=== PATIENT | female | born 1990 | race Caucasian/White ===

== ENCOUNTER 2016-12-11 23:34 | Emergency (ER) | payer OTHER ==
[2016-12-12] MEDS ORDERED: ACETAMINOPHEN 325 MG TAB As Ordered ONE (01:20)
[2016-12-12] MEDS ORDERED: NORCO 5/325MG TABLET (BULK) As Ordered ONE (02:26)
--- NOTE | 2016-12-12 02:26 | REP ---
Clinical: Trauma. Technique: AP, lateral, bilateral oblique views of the left ankle. Findings: There is an acute oblique fracture of the distal fibular metaphysis / lateral malleolus with overlying soft tissue swelling. Post surgical changes involving the hind foot noted. Ankle mortise appears relatively intact. Impression: Acute lateral malleolus fracture with overlying soft tissue swelling. Signed by Suraj Edwards MD 12/12/2016 02:17 A
--- NOTE | 2016-12-12 02:28 | REP ---
Clinical: Trauma. Deformity/swelling. Technique: AP, lateral, bilateral oblique and sunrise views left knee . Findings: The osseous structures and joint spaces are intact and normal. There is no evidence for acute fracture or dislocation. No joint effusion is appreciated. Surrounding soft tissues are unremarkable. No subcutaneous emphysema or radiodense foreign body. Impression: Normal examination. No acute fracture or dislocation. Signed by Suraj Edwards MD 12/12/2016 02:19 A
--- NOTE | 2016-12-12 02:30 | REP ---
Clinical: Deformity/swelling. Technique: AP, lateral, bilateral oblique views of the left foot. Findings: There is a fracture of the distal fibula with overlying soft tissue swelling. Postsurgical changes involving the hind foot and calcaneus noted. No further acute fracture / dislocation appreciated or suggested. No subcutaneous emphysema or radiodense foreign body. Impression: Distal fibular fracture. Postsurgical changes to the hind foot. Signed by Suraj Edwards MD 12/12/2016 02:21 A
--- NOTE | 2016-12-12 02:37 | EDDOCDS ---
Physician Documentation [facility] Name: Heena Veliz Age: 26 yrs Sex: Female : 1990 Arrival Date: 12/11/2016 Time: 23:34 Bed I4 / M4 Private MD: Dago Morales H. Disposition: 12/12/16 02:24 Discharged to Home/Self Care. Impression: Displaced fracture of lateral malleolus of left fibula, Sprain of unspecified site of left knee, Other sprain of left foot. - Condition is Stable. - Discharge Instructions: Ankle Sprain, Knee Pain, Fibular Fracture, Pediatric. - Prescriptions for Jackson 5- 325 mg Oral Tablet - take 1 tablet by ORAL route every 6 hours As needed MDD: 4 tabs; 20 tablet. - Medication Reconciliation, Local Pharmacy Hours form. - Follow up: [facility]; When: 2 - 3 days; Reason: Recheck today's complaints, Continuance of care. - Problem is new. - Symptoms have improved. - Notes: FOLLOW UP WITH YOUR ORTHOPEDIC DOCTOR TOMORROW, USE MEDICATION INSTRUCTED Historical: - Allergies: no known allergies; - Home Meds: 1. Lexapro 10 mg Oral tab 1 tab once daily (Last dose: 12/10/2016) 2. Zyrtec 10 mg Oral tab 1 tab once daily (Last dose: 12/10/2016) 3. control pill 1 tab daily (Last dose: 12/10/2016) 4. naproxen 250 mg Oral tab 1 tab as needed (Last dose: 12/11/2016 22:30) - PMHx: Anxiety; Seasonal Allergies; - PSHx: bilateral feet surgery; - Social history: Smoking status: Patient uses tobacco products, current some day smoker. No barriers to communication noted, The patient speaks fluent Djiboutian, Speaks appropriately for age. - Family history: Not pertinent. - : The pt / caregiver states he / she is not on anticoagulants. Home medication list is obtained from the patient. - Exposure Risk Screening:: None identified. 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 9 in. (175.26 cm) (R); Pain 03/13; 12/12 02:34 BP 122 / 83; Pulse 88; Resp 16; Temp 98.6; Pulse Ox 97% ; Pain 3/10; mlc 12/11 23:37 Body Mass Index 31.01 (95.25 kg, 175.26 cm) gr2 Procedures: 02:22 Fracture care/splinting: Splint applied to left leg using Orthoglass splint, applied by ck7 myself. Examined by me, post splint application: neurovascular intact, 2+ distal pulses palpable, brisk capillary refill noted, Patient tolerated well. MDM: 01:18 Acetaminophen Tablet 650 mg PO once ordered. ck7 01:19 Knee, Complete Ordered. EDMS 01:19 Ankle, Complete Ordered. EDMS 01:20 Foot, Complete Ordered. EDMS 01:30 Financial registration complete. hs2 02:23 Crutches ordered. ck7 02:25 HYDROcodone-acetaminophen 4 pack- 5 mg-325 mg 1 packets PO Per package directions; ck7 Dispense with patient. 1 po q4h prn for pain ordered. Administered Medications: 01:34 Drug: Acetaminophen 650 mg [acetaminophen 325 mg tablet (2 tabs)] Route: PO; mlc 02:28 Drug: HYDROcodone-acetaminophen 4 pack- 1 packets [hydrocodone 5 mg-acetaminophen 325 mlc mg tablet (1 tabs)] {Co-Signature: nn1 (Lex Castorena RN).} Route: PO; 02:36 Follow up: Response: Med's dispensed home mlc Signatures: Dispatcher [employer] EDTarah Pérez RN RN dsf Kwaczala, Christopher, RPA-C RPA-Cck7 Guillermina Fuentes RN RN mlc Stanton, Hillary, Reg Reg hs2 Lex Castorena RN nn1 MTDD
--- NOTE | 2016-12-12 02:38 | EDDOCDS ---
Nurse's Notes [facility] Name: Heena Veliz Age: 26 yrs Sex: Female : 1990 Arrival Date: 12/11/2016 Time: 23:34 Bed I4 / M4 Private MD: Dago Morales H. Diagnosis: Sprain of unspecified site of left knee;Other sprain of left foot;Displaced fracture of lateral malleolus of left fibula Presentation: 12/11 23:52 Presenting complaint: Patient states: slipped on stairs and injured left leg, left knee dsf and left ankle. Adult Sepsis Screening: The patient does not have new or worsening altered mentation. Patient's respiratory rate is less than 22. Systolic blood pressure is greater than 100. Patient has a qSOFA score of 0- Negative Sepsis Screen. Suicide/Homicide risk assessment- the patient denies having any suicidal and/or homicidal ideations and does not present with any other emotional, behavioral or mental health complaints. Status: Patient is not a rehabilitation services manager or dependent. Transition of care: patient was not received from another setting of care. 23:52 Acuity: FAY Level 4 dsf 23:52 Method Of Arrival: Walkin/Carried/Asstd dsf 23:54 The patients lower extremity has obvious swelling present on examination. dsf Triage Assessment: 23:54 General: Appears in no apparent distress, Behavior is appropriate for age, cooperative. dsf Pain: Denies pain. Pt Declines HIV testing. Musculoskeletal: No deformity noted Swelling present in left ankle Reports pain in left ankle left lower leg and left knee. 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 Lexapro 10 mg Oral tab 1 tab once daily (Last dose: 12/10/2016) 2. Zyrtec 10 mg Oral tab 1 tab once daily (Last dose: 12/10/2016) 3. control pill 1 tab daily (Last dose: 12/10/2016) 4. naproxen 250 mg Oral tab 1 tab as needed (Last dose: 12/11/2016 22:30) - PMHx: Anxiety; Seasonal Allergies; - PSHx: bilateral feet surgery; - Social history: Smoking status: Patient uses tobacco products, current some day smoker. No barriers to communication noted, The patient speaks fluent Sierra Leonean, Speaks appropriately for age. - Family history: Not pertinent. - : The pt / caregiver states he / she is not on anticoagulants. Home medication list is obtained from the patient. - Exposure Risk Screening:: None identified. Screenin/08 01:34 Screening information is obtained from the patient. Fall risk: At risk due to injury. mlc Assistance ADL's: requires no assistance with activities of daily living. Abuse/DV Screen: The patient / caregiver reports he/she is: not in a situation that causes fear, pain or injury. Nutritional screening: No deficits noted. Advance Directives: Currently, there is no health care proxy. home support is adequate. Assessment: 01:34 General: Appears in no apparent distress, comfortable, Behavior is cooperative. Pain: mlc Location: left knee and anterior aspect of left ankle. Neurological: Level of Consciousness is awake, alert, Oriented to person, place, time. Cardiovascular: Pulses are all present. Respiratory: Airway is patent Respiratory effort is even, unlabored, Respiratory pattern is regular, symmetrical. : Derm: Skin is normal, Swollen area noted on left Achilles, left lateral malleolus, left medial malleolus and dorsum of left foot. Musculoskeletal: Capillary refill < 3 seconds in left toes Signs and Symptoms of Compartment Syndrome: no signs of compartment syndrome. 02:34 General: Appears in no apparent distress, comfortable, Behavior is cooperative, splint mlc on left lower leg. pt given crutches. . Pain: Pain currently is 3 out of 10 on a pain scale. Neurological: Level of Consciousness is awake, alert, obeys commands, Oriented to person, place, time. Respiratory: Airway is patent Respiratory effort is even, unlabored, Respiratory pattern is regular. Derm: Skin is normal. Derm:. Musculoskeletal: Circulation, motion, and sensation intact. Vital Signs: 12/11 23:37 BP 127 / 72; Pulse 82; Resp 18; Temp 98.9(O); Pulse Ox 100% on R/A; Weight 95.25 kg gr2 (R); Height 5 ft. 9 in. (175.26 cm) (R); Pain 5/10; 12/12 02:34 BP 122 / 83; Pulse 88; Resp 16; Temp 98.6; Pulse Ox 97% ; Pain 3/10; mlc 12/11 23:37 Body Mass Index 31.01 (95.25 kg, 175.26 cm) gr2 Vitals: 12/11 23:37 Log In Time: December 11, 2016 at 23:37. gr2 ED Course: 23:35 Patient visited by Linda Matson. gr2 23:35 Patient moved to Waiting gr2 23:37 Dago Morales is Private Physician. gr2 23:39 Patient visited by Linda Matson. gr2 23:39 Patient moved to Pre RCE gr2 23:52 Triage Initiated dsf 02/08 00:17 Patient moved to MTA Wait dsf 00:48 Patient moved to I4 / M4 ajs 00:50 Guillermo Cano RPA-C is PHCP. ck7 00:50 Maximus Preciado MD is Attending Physician. ck7 00:50 Patient visited by Guillermo Cano RPA-C. ck7 01:06 Patient visited by Guillermo Cano RPA-C. ck7 01:36 Patient visited by Guillermina Fuentes RN. mlc 02:10 Patient visited by Guillermo Cano RPA-C. ck7 02:23 [facility] is Referral Physician. ck7 02:34 The patient / caregiver is instructed regarding the plan of care and ED course. mlc 02:34 No IV's were initiated during this patient's visit. No procedures done that require mlc assistance. Administered Medications: 01:34 Drug: Acetaminophen 650 mg [acetaminophen 325 mg tablet (2 tabs)] Route: PO; mlc 02:28 Drug: HYDROcodone-acetaminophen 4 pack- 1 packets [hydrocodone 5 mg-acetaminophen 325 mlc mg tablet (1 tabs)] {Co-Signature: nn1 (Lex Castorena RN).} Route: PO; 02:36 Follow up: Response: Med's dispensed home mlc Order Results: There are currently no results for this order. Outcome: 02:24 Discharge ordered by Provider. ck7 02:34 Discharge Assessment: Patient awake, alert and oriented x 3. No cognitive and/or mlc functional deficits noted. Patient verbalized understanding of disposition instructions. patient administered narcotics - no. The following High Risk Discharge criteria are identified: None. Discharged to home with crutches, with significant other. Condition: good Condition: stable. Discharge instructions given to patient, Instructed on discharge instructions, follow up and referral plans. medication usage, no driving heavy equipment, Demonstrated understanding of instructions, medications, Pt was receptive of discharge instructions/ teaching. Prescriptions given X 1. No special radiology studies were completed. Property sent home with patient. 02:36 Patient left the ED. [facility] Signatures: Tarah Burnett,RN RN Alma Shah Christopher, RPA-C RPA-Cck7 Linda Matson gr2 Guillermina Fuentes RN RN [facility] Lex Castorena RN nn1 MTDD
[2016-12-12] MEDS ORDERED: METAL LOCK LOOP XX ONE (03:37)
--- NOTE | 2016-12-14 03:38 | EDDOCDS ---
Physician Documentation [facility] Name: Heena Veliz Age: 26 yrs Sex: Female : 1990 Arrival Date: 12/11/2016 Time: 23:34 Bed I4 / M4 Private MD: Dago Morales H. Disposition: 12/12/16 02:24 Discharged to Home/Self Care. Impression: Displaced fracture of lateral malleolus of left fibula, Sprain of unspecified site of left knee, Other sprain of left foot. - Condition is Stable. - Discharge Instructions: Ankle Sprain, Knee Pain, Fibular Fracture, Pediatric. - Prescriptions for Wales 5- 325 mg Oral Tablet - take 1 tablet by ORAL route every 6 hours As needed MDD: 4 tabs; 20 tablet. - Medication Reconciliation, Local Pharmacy Hours form. - Follow up: [facility]; When: 2 - 3 days; Reason: Recheck today's complaints, Continuance of care. - Problem is new. - Symptoms have improved. - Notes: FOLLOW UP WITH YOUR ORTHOPEDIC DOCTOR TOMORROW, USE MEDICATION INSTRUCTED Historical: - Allergies: no known allergies; - Home Meds: 1. Lexapro 10 mg Oral tab 1 tab once daily (Last dose: 12/10/2016) 2. Zyrtec 10 mg Oral tab 1 tab once daily (Last dose: 12/10/2016) 3. control pill 1 tab daily (Last dose: 12/10/2016) 4. naproxen 250 mg Oral tab 1 tab as needed (Last dose: 12/11/2016 22:30) - PMHx: Anxiety; Seasonal Allergies; - PSHx: bilateral feet surgery; - Social history: Smoking status: Patient uses tobacco products, current some day smoker. No barriers to communication noted, The patient speaks fluent Ukrainian, Speaks appropriately for age. - Family history: Not pertinent. - : The pt / caregiver states he / she is not on anticoagulants. Home medication list is obtained from the patient. - Exposure Risk Screening:: None identified. 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 9 in. (175.26 cm) (R); Pain 5/10; 12/12 02:34 BP 122 / 83; Pulse 88; Resp 16; Temp 98.6; Pulse Ox 97% ; Pain 3/10; mlc 12/11 23:37 Body Mass Index 31.01 (95.25 kg, 175.26 cm) gr2 Procedures: 02:22 Fracture care/splinting: Splint applied to left leg using Orthoglass splint, applied by ck7 myself. Examined by me, post splint application: neurovascular intact, 2+ distal pulses palpable, brisk capillary refill noted, Patient tolerated well. MDM: 01:18 Acetaminophen Tablet 650 mg PO once ordered. ck7 01:19 Knee, Complete Ordered. EDMS 01:19 Ankle, Complete Ordered. EDMS 01:20 Foot, Complete Ordered. EDMS 01:30 Financial registration complete. hs2 02:23 Crutches ordered. ck7 02:25 HYDROcodone-acetaminophen 4 pack- 5 mg-325 mg 1 packets PO Per package directions; ck7 Dispense with patient. 1 po q4h prn for pain ordered. 03:30 [facility] [place] Agreement was scanned into [employer] and attached to record. hs2 09:21 T-Sheet-- Draft Copy was scanned into [employer] and attached to record. gb Administered Medications: 01:34 Drug: Acetaminophen 650 mg [acetaminophen 325 mg tablet (2 tabs)] Route: PO; mlc 02:28 Drug: HYDROcodone-acetaminophen 4 pack- 1 packets [hydrocodone 5 mg-acetaminophen 325 mlc mg tablet (1 tabs)] {Co-Signature: nn1 (Lex Castorena RN).} Route: PO; 02:36 Follow up: Response: Med's dispensed home mlc Signatures: Dispatcher [employer] EDMS Ana Reno, Reg Reg gb Tarah Burnett RN RN dsf Kwaczala, Christopher, RPA-C RPA-Cck7 Guillermina Fuentes RN RN [facility] Meggan Pierre, Reg Reg hs2 Lex Castorena RN nn1 The chart was reviewed and I authenticate all verbal orders and agree with the evaluation and treatment provided.Attachments: 03:30 [facility] Payment Agreement hs2 09:21 T-Sheet-- Draft Copy gb Chart Complete MTDD
--- NOTE | 2016-12-14 03:38 | EDDOCDS ---
Nurse's Notes [facility] Name: Heena Veliz Age: 26 yrs Sex: Female : 1990 Arrival Date: 12/11/2016 Time: 23:34 Bed I4 / M4 Private MD: Dago Morales H. Diagnosis: Sprain of unspecified site of left knee;Other sprain of left foot;Displaced fracture of lateral malleolus of left fibula Presentation: 12/11 23:52 Presenting complaint: Patient states: slipped on stairs and injured left leg, left knee dsf and left ankle. Adult Sepsis Screening: The patient does not have new or worsening altered mentation. Patient's respiratory rate is less than 22. Systolic blood pressure is greater than 100. Patient has a qSOFA score of 0- Negative Sepsis Screen. Suicide/Homicide risk assessment- the patient denies having any suicidal and/or homicidal ideations and does not present with any other emotional, behavioral or mental health complaints. Status: Patient is not a in service education teacher or dependent. Transition of care: patient was not received from another setting of care. 23:52 Acuity: FAY Level 4 dsf 23:52 Method Of Arrival: Walkin/Carried/Asstd dsf 23:54 The patients lower extremity has obvious swelling present on examination. dsf Triage Assessment: 23:54 General: Appears in no apparent distress, Behavior is appropriate for age, cooperative. dsf Pain: Denies pain. Pt Declines HIV testing. Musculoskeletal: No deformity noted Swelling present in left ankle Reports pain in left ankle left lower leg and left knee. 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 Lexapro 10 mg Oral tab 1 tab once daily (Last dose: 12/10/2016) 2. Zyrtec 10 mg Oral tab 1 tab once daily (Last dose: 12/10/2016) 3. control pill 1 tab daily (Last dose: 12/10/2016) 4. naproxen 250 mg Oral tab 1 tab as needed (Last dose: 12/11/2016 22:30) - PMHx: Anxiety; Seasonal Allergies; - PSHx: bilateral feet surgery; - Social history: Smoking status: Patient uses tobacco products, current some day smoker. No barriers to communication noted, The patient speaks fluent Andorran, Speaks appropriately for age. - Family history: Not pertinent. - : The pt / caregiver states he / she is not on anticoagulants. Home medication list is obtained from the patient. - Exposure Risk Screening:: None identified. Screenin/08 01:34 Screening information is obtained from the patient. Fall risk: At risk due to injury. mlc Assistance ADL's: requires no assistance with activities of daily living. Abuse/DV Screen: The patient / caregiver reports he/she is: not in a situation that causes fear, pain or injury. Nutritional screening: No deficits noted. Advance Directives: Currently, there is no health care proxy. home support is adequate. Assessment: 01:34 General: Appears in no apparent distress, comfortable, Behavior is cooperative. Pain: mlc Location: left knee and anterior aspect of left ankle. Neurological: Level of Consciousness is awake, alert, Oriented to person, place, time. Cardiovascular: Pulses are all present. Respiratory: Airway is patent Respiratory effort is even, unlabored, Respiratory pattern is regular, symmetrical. : Derm: Skin is normal, Swollen area noted on left Achilles, left lateral malleolus, left medial malleolus and dorsum of left foot. Musculoskeletal: Capillary refill < 3 seconds in left toes Signs and Symptoms of Compartment Syndrome: no signs of compartment syndrome. 02:34 General: Appears in no apparent distress, comfortable, Behavior is cooperative, splint mlc on left lower leg. pt given crutches. . Pain: Pain currently is 3 out of 10 on a pain scale. Neurological: Level of Consciousness is awake, alert, obeys commands, Oriented to person, place, time. Respiratory: Airway is patent Respiratory effort is even, unlabored, Respiratory pattern is regular. Derm: Skin is normal. Derm:. Musculoskeletal: Circulation, motion, and sensation intact. Vital Signs: 12/11 23:37 BP 127 / 72; Pulse 82; Resp 18; Temp 98.9(O); Pulse Ox 100% on R/A; Weight 95.25 kg gr2 (R); Height 5 ft. 9 in. (175.26 cm) (R); Pain 5/10; 12/12 02:34 BP 122 / 83; Pulse 88; Resp 16; Temp 98.6; Pulse Ox 97% ; Pain 3/10; mlc 12/11 23:37 Body Mass Index 31.01 (95.25 kg, 175.26 cm) gr2 Vitals: 12/11 23:37 Log In Time: December 11, 2016 at 23:37. gr2 ED Course: 23:35 Patient visited by Linda Matson. gr2 23:35 Patient moved to Waiting gr2 23:37 Dago Morales is Private Physician. gr2 23:39 Patient visited by Linda Matson. gr2 23:39 Patient moved to Pre RCE gr2 23:52 Triage Initiated dsf 02/08 00:17 Patient moved to MTA Wait dsf 00:48 Patient moved to I4 / M4 ajs 00:50 Guillermo Cano RPA-C is PHCP. ck7 00:50 Maximus Preciado MD is Attending Physician. ck7 00:50 Patient visited by Guillermo Cano RPA-C. ck7 01:06 Patient visited by Guillermo Cano RPA-C. ck7 01:36 Patient visited by Guillermina Fuentes RN. mlc 02:10 Patient visited by Guillermo Cano RPA-C. ck7 02:23 [facility] is Referral Physician. ck7 02:34 The patient / caregiver is instructed regarding the plan of care and ED course. mlc 02:34 No IV's were initiated during this patient's visit. No procedures done that require mlc assistance. 02:39 Ankle, Complete Returned. EDMS 02:39 Knee, Complete Returned. EDMS 02:39 Foot, Complete Returned. EDMS 03:30 [facility] Payment Agreement was scanned into [employer]/ and attached to record. hs2 03:32 Patient name changed from Heena\S\\S\Jose Alfredo\S\ to Heena\S\Chrissie\S\Jose Alfredo. EDMS 09:21 T-Sheet-- Draft Copy was scanned into [employer]/ and attached to record. gb Administered Medications: 01:34 Drug: Acetaminophen 650 mg [acetaminophen 325 mg tablet (2 tabs)] Route: PO; mlc 02:28 Drug: HYDROcodone-acetaminophen 4 pack- 1 packets [hydrocodone 5 mg-acetaminophen 325 mlc mg tablet (1 tabs)] {Co-Signature: nn1 (Lex Castorena RN).} Route: PO; 02:36 Follow up: Response: Med's dispensed home mlc Order Results: Radiology Order: Knee, Complete Test: Knee, Complete REASON FOR EXAMINATION: Deformity/Swelling; Clinical: Trauma. Deformity/swelling.; ; Technique: AP, lateral, bilateral oblique and sunrise views left knee .; ; Findings: The osseous structures and joint spaces are intact and normal. There; is no evidence for acute fracture or dislocation. No joint effusion is; appreciated. Surrounding soft tissues are unremarkable. No subcutaneous; emphysema or radiodense foreign body.; ; Impression:; Normal examination. No acute fracture or dislocation.; ; ; Signed by; Suraj Edwards MD 12/12/2016 02:19 A; Radiology Order: Ankle, Complete Test: Ankle, Complete REASON FOR EXAMINATION: Deformity/Swelling; Clinical: Trauma.; ; Technique: AP, lateral, bilateral oblique views of the left ankle.; ; Findings:; There is an acute oblique fracture of the distal fibular metaphysis / lateral; malleolus with overlying soft tissue swelling. Post surgical changes involving; the hind foot noted. Ankle mortise appears relatively intact.; ; Impression:; Acute lateral malleolus fracture with overlying soft tissue swelling.; ; ; Signed by; Suraj Edwards MD 12/12/2016 02:17 A; Radiology Order: Foot, Complete Test: Foot, Complete REASON FOR EXAMINATION: Deformity/Swelling; Clinical: Deformity/swelling.; ; Technique: AP, lateral, bilateral oblique views of the left foot.; ; Findings:; There is a fracture of the distal fibula with overlying soft tissue swelling.; Postsurgical changes involving the hind foot and calcaneus noted. No further; acute fracture / dislocation appreciated or suggested. No subcutaneous emphysema; or radiodense foreign body.; ; Impression:; Distal fibular fracture.; Postsurgical changes to the hind foot.; ; ; Signed by; Suraj Edwards MD 12/12/2016 02:21 A; Outcome: 02:24 Discharge ordered by Provider. ck7 02:34 Discharge Assessment: Patient awake, alert and oriented x 3. No cognitive and/or mlc functional deficits noted. Patient verbalized understanding of disposition instructions. patient administered narcotics - no. The following High Risk Discharge criteria are identified: None. Discharged to home with crutches, with significant other. Condition: good Condition: stable. Discharge instructions given to patient, Instructed on discharge instructions, follow up and referral plans. medication usage, no driving heavy equipment, Demonstrated understanding of instructions, medications, Pt was receptive of discharge instructions/ teaching. Prescriptions given X 1. No special radiology studies were completed. Property sent home with patient. 02:36 Patient left the ED. [facility] [place] Signatures: Dispatcher [employer] EDTN Ana Reno, Reg Reg gb Tarah Burnett,RN RN Alma Shah Christopher, RPA-C RPA-Cck7 Linda Matson gr2 Guillermina Fuentes,RN RN [facility] [place] Meggan Pierre, Reg Reg hs2 Lex Castorena RN nn1 Chart Complete MTDD
--- NOTE | 2016-12-14 03:38 | EDDOCDS ---
Physician Documentation [facility] Name: Heena Veliz Age: 26 yrs Sex: Female : 1990 Arrival Date: 12/11/2016 Time: 23:34 Bed I4 / M4 Private MD: Dago Morales H. Disposition: 12/12/16 02:24 Discharged to Home/Self Care. Impression: Displaced fracture of lateral malleolus of left fibula, Sprain of unspecified site of left knee, Other sprain of left foot. - Condition is Stable. - Discharge Instructions: Ankle Sprain, Knee Pain, Fibular Fracture, Pediatric. - Prescriptions for Bend 5- 325 mg Oral Tablet - take 1 tablet by ORAL route every 6 hours As needed MDD: 4 tabs; 20 tablet. - Medication Reconciliation, Local Pharmacy Hours form. - Follow up: [facility]; When: 2 - 3 days; Reason: Recheck today's complaints, Continuance of care. - Problem is new. - Symptoms have improved. - Notes: FOLLOW UP WITH YOUR ORTHOPEDIC DOCTOR TOMORROW, USE MEDICATION INSTRUCTED Historical: - Allergies: no known allergies; - Home Meds: 1. Lexapro 10 mg Oral tab 1 tab once daily (Last dose: 12/10/2016) 2. Zyrtec 10 mg Oral tab 1 tab once daily (Last dose: 12/10/2016) 3. control pill 1 tab daily (Last dose: 12/10/2016) 4. naproxen 250 mg Oral tab 1 tab as needed (Last dose: 12/11/2016 22:30) - PMHx: Anxiety; Seasonal Allergies; - PSHx: bilateral feet surgery; - Social history: Smoking status: Patient uses tobacco products, current some day smoker. No barriers to communication noted, The patient speaks fluent Yi, Speaks appropriately for age. - Family history: Not pertinent. - : The pt / caregiver states he / she is not on anticoagulants. Home medication list is obtained from the patient. - Exposure Risk Screening:: None identified. 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 9 in. (175.26 cm) (R); Pain 5/10; 12/12 02:34 BP 122 / 83; Pulse 88; Resp 16; Temp 98.6; Pulse Ox 97% ; Pain 3/10; mlc 12/11 23:37 Body Mass Index 31.01 (95.25 kg, 175.26 cm) gr2 Procedures: 02:22 Fracture care/splinting: Splint applied to left leg using Orthoglass splint, applied by ck7 myself. Examined by me, post splint application: neurovascular intact, 2+ distal pulses palpable, brisk capillary refill noted, Patient tolerated well. MDM: 01:18 Acetaminophen Tablet 650 mg PO once ordered. ck7 01:19 Knee, Complete Ordered. EDMS 01:19 Ankle, Complete Ordered. EDMS 01:20 Foot, Complete Ordered. EDMS 01:30 Financial registration complete. hs2 02:23 Crutches ordered. ck7 02:25 HYDROcodone-acetaminophen 4 pack- 5 mg-325 mg 1 packets PO Per package directions; ck7 Dispense with patient. 1 po q4h prn for pain ordered. 03:30 [facility] Payment Agreement was scanned into [employer] and attached to record. hs2 09:21 T-Sheet-- Draft Copy was scanned into [employer] and attached to record. gb Administered Medications: 01:34 Drug: Acetaminophen 650 mg [acetaminophen 325 mg tablet (2 tabs)] Route: PO; mlc 02:28 Drug: HYDROcodone-acetaminophen 4 pack- 1 packets [hydrocodone 5 mg-acetaminophen 325 mlc mg tablet (1 tabs)] {Co-Signature: [id number] (Lex Castorena RN).} Route: PO; 02:36 Follow up: Response: Med's dispensed home mlc Signatures: Dispatcher [employer] EDMS Ana [place], Reg Reg gb Tarah Burnett RN RN dsf Kwaczala, Christopher, RPA-C [id number] Guillermina Fuentes RN RN [facility] Meggan Pierre, Reg Reg hs2 Lex Castorena RN nn1 The chart was reviewed and I authenticate all verbal orders and agree with the evaluation and treatment provided.Attachments: 03:30 [facility] Payment Agreement hs2 09:21 T-Sheet-- Draft Copy gb Chart Complete MTDD
== END 2016-12-12 02:36 | disposition home or self-care (01) ==
LOC: M ED 23:34
DX: S82.62XA Displaced fracture of lateral malleolus of left fibula, initial encounter for closed fracture (principal); S93.602A Unspecified sprain of left foot, initial encounter; S83.92XA Sprain of unspecified site of left knee, initial encounter; W00.0XXA Fall on same level due to ice and snow, initial encounter; Y92.019 Unspecified place in single-family (private) house as the place of occurrence of the external cause; Y93.01 Activity, walking, marching and hiking; Y99.8 Other external cause status; F41.9 Anxiety disorder, unspecified; J30.9 Allergic rhinitis, unspecified; F17.210 Nicotine dependence, cigarettes, uncomplicated; Z79.3 Long term (current) use of hormonal contraceptives; Z79.899 Other long term (current) drug therapy

== ENCOUNTER → 2017-10-21 | Outpatient (REF) | payer OTHER | LOC: M LAB REF 18:31 | PROVIDERS: ATTEND Physician Assistant | DX: J02.9 Acute pharyngitis, unspecified (principal) ==

== ENCOUNTER → 2018-10-08 | Outpatient (REF) | payer OTHER ==
[2018-10-08 22:19] LABS: APPEARANCE, URINE CLEAR (CLEAR); BACTERIA, URINE AUTO 1+ (NEGATIVE); BILIRUBIN, URINE AUTO NEGATIVE (NEGATIVE); BLOOD, URINE BLOOD NEGATIVE (NEGATIVE); COLOR, URINE STRAW (YELLOW); GLUCOSE, URINE (UA) AUTO NEGATIVE (NEGATIVE); KETONE, URINE AUTO NEGATIVE (NEGATIVE); LEUKOCYTE ESTERASE, URINE AUTO 2+ (NEGATIVE); NITRITE, URINE AUTO NEGATIVE (NEGATIVE); PROTEIN, URINE AUTO NEGATIVE (NEGATIVE); RBC, URINE AUTO 0 /HPF (0-3); SPECIFIC GRAVITY URINE AUTO 1.002 (1.002-1.035); SQUAMOUS EPITHELIAL CELL UR AU 0 /HPF (0-6); UROBILINOGEN, URINE AUTO 0.2 mg/dL (0.0-2.0); WBC, URINE AUTO 2 /HPF (0-3)
[2018-10-08 23:39] LABS: CHLAMYDIA DNA AMPLIFICATION NEGATIVE (NEGATIVE); GC DNA AMPLIFICATION NEGATIVE (NEGATIVE)
== END ==
LOC: M LAB REF 09:22
DX: N39.0 Urinary tract infection, site not specified (principal); Z11.3 Encounter for screening for infections with a predominantly sexual mode of transmission